=== PATIENT | female | born 1975 | race Caucasian/White ===

== ENCOUNTER 2018-03-19 10:30 | Day surgery (SDC) | payer MEDICAID ==
[~2018-03-19 10:30] MED LIST: CEFAZOLIN 2 GM/50 ML (PMX) 50 ML IVPB; SOD CHLORIDE 0.9% 1,000 ML IV
[2018-03-19] MEDS ORDERED: PROPOFOL 20 ML (13:29)
[2018-03-19] MEDS ORDERED: CEFAZOLIN 1 GM INJ (13:29)
[2018-03-19] MEDS ORDERED: LIDOCAINE 100 MG SYRINGE (13:29)
[2018-03-19] MEDS ORDERED: OXYCODONE/ACETAMINOPHEN (5/325) TAB PO ×2 (13:30)
[2018-03-19] MEDS ORDERED: METOCLOPRAMIDE 10 MG INJ (13:30)
[2018-03-19] MEDS ORDERED: EPHEDrine SULFATE 50 MG/5 ML SYG IV (13:30)
[2018-03-19] MEDS ORDERED: FENTAnyl 50 MCG/ML VIAL IV ×2 (13:30)
[2018-03-19] MEDS ORDERED: LABETALOL HCL 20MG INJ IV (13:30)
[2018-03-19] MEDS ORDERED: MEPERIDINE 25 MG INJ IV (13:30)
[2018-03-19] MEDS ORDERED: DIPHENHYDRAMINE 50 MG INJ IV (13:30)
[2018-03-19] MEDS ORDERED: ONDANSETRON 4 MG INJ IV (13:30)
[2018-03-19] MEDS ORDERED: METOCLOPRAMIDE 10 MG INJ IV (13:30)
[2018-03-19] MEDS ORDERED: HYDROmorphONE (0.2 MG/ML) 10ML SYG IV ×3 (13:30)
[2018-03-19] MEDS ORDERED: MEPERIDINE 100 MG INJ (13:30)
[2018-03-19] MEDS ORDERED: ONDANSETRON 4 MG INJ (13:30)
[2018-03-19] MEDS ORDERED: MIDAZOLAM 1 MG/ML 2 ML INJ IV (13:30)
[2018-03-19] MEDS ORDERED: hydrALAzine 20 MG INJ IV (13:30)
[2018-03-19] MEDS ORDERED: HYDROCODONE/APAP (7.5/325) TAB PO (15:00)
[2018-03-19] MEDS: FENTAnyl 50 MCG/ML VIAL IV (15:15)
== END 2018-03-19 17:02 | disposition home or self-care (01) ==
LOC: SDS 10:30
DX: D24.1 Benign neoplasm of right breast (principal); N60.11 Diffuse cystic mastopathy of right breast; E66.9 Obesity, unspecified; Z68.33 Body mass index [BMI] 33.0-33.9, adult
CPT/HCPCS: 19120; 71045; 84703; 88307